=== PATIENT | male | born 2000 | race Caucasian/White ===

== ENCOUNTER 2022-10-28 16:35 | Emergency (ER) | payer OTHER, MEDICAID ==
[~2022-10-28] VITALS: Ht 185.4 cm; Wt 97.5 kg
[2022-10-28 16:43] VITALS: BP_SYST 127
--- NOTE | 2022-10-28 16:51 | NUR ---
Pt brought by self,A&Ox4, pt presents to ER with L hand pain and swelling, per pt may have a piece of glass stuck on L hand, pt refusing to states mechanism of injury, skin pink and warm, cap refill <3.
--- NOTE | 2022-10-28 17:05 | NUR ---
Dr Davies evaluating patient at bedside
[2022-10-28] MEDS ORDERED: IBUP-1970 PO (17:30)
[2022-10-28] MEDS ORDERED: IBUPROFEN 600 MG TABLET PO ONE (17:30)
[2022-10-28] MEDS ORDERED: CEPH250C PO (17:30)
[2022-10-28] MEDS ORDERED: DIPHTH,PERTUSS(ACELL),TET VAC 0.5 ML VIAL (Tdap) I.M. ONE (17:30)
[2022-10-28] MEDS ORDERED: cephALEXin 500 MG CAPSULE PO ONE (17:30)
[2022-10-28] MEDS ORDERED: IBUPROFEN 600 MG TABLET ONE (17:42)
[2022-10-28] MEDS ORDERED: cephALEXin 500 MG CAPSULE ONE (17:43)
--- NOTE | 2022-10-28 18:02 | NUR ---
Patient given written and verbal discharge instructions and verbalizes understanding. ER MD discussed with patient the results and treatment provided. Patient in stable condition. ID arm band removed. Rx of keflex, Ibuprofen given. Patient educated on pain management and to follow up with PMD. Pain Scale 2/10. Opportunity for questions provided and answered. Medication side effect fact sheet provided.
[2022-10-28 18:03] VITALS: BP_SYST 127
== END 2022-10-28 18:03 | disposition home or self-care (01) ==
LOC: SED 16:35
DX: S60.222A Contusion of left hand, initial encounter (principal); L03.114 Cellulitis of left upper limb; Z79.899 Other long term (current) drug therapy; W25.XXXA Contact with sharp glass, initial encounter; Y93.89 Activity, other specified; Y92.89 Other specified places as the place of occurrence of the external cause; Y99.8 Other external cause status
CPT/HCPCS: 99283

== ENCOUNTER → 2022-12-18 | Emergency (ER) | payer OTHER, MEDICAID ==
[~2022-12-18] VITALS: Ht 185.4 cm; Wt 97.5 kg
[~2022-12-18] MED LIST: CEPH250C PO; IBUP-1970 PO
[2022-12-18 13:44] VITALS: BP_SYST 125
[2022-12-18 15:30] VITALS: BP_SYST 125
== END | disposition left against medical advice (07) ==
LOC: SED 13:24
DX: R10.13 Epigastric pain (principal); Z79.899 Other long term (current) drug therapy
CPT/HCPCS: 99281